=== PATIENT | male | born 1995 | race Caucasian/White ===

== ENCOUNTER 2020-11-22 00:10 | Emergency (ER) | payer MEDICAID ==
[~2020-11-22] VITALS: Ht 167.6 cm; Wt 100.0 kg
[2020-11-22] MEDS ORDERED: ACETAMINOPHEN 500MG TABLET PO ONE (01:00)
[2020-11-22 02:35] VITALS: BP 132/84
== END 2020-11-22 02:55 | disposition home or self-care (01) ==
LOC: ER 00:10
DX: T40.2X1A Poisoning by other opioids, accidental (unintentional), initial encounter (principal); R42 Dizziness and giddiness; Z20.822 Contact with and (suspected) exposure to COVID-19; M79.18 Myalgia, other site; R43.8 Other disturbances of smell and taste; R05 Cough; Y92.89 Other specified places as the place of occurrence of the external cause
CPT/HCPCS: 99284; C9803; U0003; U0005

== ENCOUNTER 2020-11-24 00:56 | Emergency (ER) | payer MEDICAID ==
[~2020-11-24] VITALS: Ht 180.3 cm; Wt 120.0 kg
[2020-11-24] MEDS ORDERED: DIPHENHYDRAMINE 50MG CAPSULE PO ONE (03:00)
[2020-11-24 05:10] VITALS: BP 108/64
== END 2020-11-24 05:12 | disposition home or self-care (01) ==
LOC: ER 00:56
DX: T45.0X1A Poisoning by antiallergic and antiemetic drugs, accidental (unintentional), initial encounter (principal); T40.2X1A Poisoning by other opioids, accidental (unintentional), initial encounter; R11.2 Nausea with vomiting, unspecified; R51.9 Headache, unspecified; R20.0 Anesthesia of skin; R94.31 Abnormal electrocardiogram [ECG] [EKG]; Y92.89 Other specified places as the place of occurrence of the external cause; F41.9 Anxiety disorder, unspecified; Z82.49 Family history of ischemic heart disease and other diseases of the circulatory system
CPT/HCPCS: 93005; 99283; Q0163